=== PATIENT | male | born 1990 | race Caucasian/White ===

== ENCOUNTER 2021-01-07 15:27 | Emergency (ER) | payer SELFPAY ==
[~2021-01-07] VITALS: Ht 190.5 cm; Wt 88.0 kg
[2021-01-07] MEDS ORDERED: IV NORMAL SALINE 1,000ML 1,000 ML IV ONE (16:00)
[2021-01-07] MEDS ORDERED: ONDANSETRON PF 4 MG/2 ML VIAL. IVP ONE (16:00)
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
[2021-01-07 16:22] LABS: BASO % 0 % (0-3); EOS # 0.1 x10^3/uL (0.0-0.7); EOS % 1 % (0-3); HEMATOCRIT 41.4 % (39.0-53.0); HEMOGLOBIN 14.5 g/dL (13.0-17.5); LYMPH # 1.6 x10^3/uL (1.0-4.8); LYMPH % 18 % (24-48); MEAN CORPUSCULAR HEMOGLOBIN 30 pg (25-35); MEAN CORPUSCULAR HGB CONC 35 g/dL (31-37); MEAN CORPUSCULAR VOLUME 85 fL (79-100); MONO # 0.6 x10^3/uL (0.0-1.1); MONO % 7 % (0-9); NEUT # 6.5 x10^3uL (1.8-7.7); NEUT % 74 % (31-73); PLATELET COUNT 221 x10^3/uL (140-400); RED BLOOD COUNT 4.87 x10^6/uL (4.30-5.70); RED CELL DISTRIBUTION WIDTH 13.5 % (11.5-14.5); WHITE BLOOD COUNT 8.8 x10^3/uL (4.0-11.0)
--- NOTE | 2021-01-07 16:26 | EKG ---
[address] [address] Test Date: 2021-01-07 Test Time: 15:40:57 Pat Name: CRISTHIAN REEVES Department: Room: Gender: M Machinery Rigger: RIGOBERTO : 1990 Requested By: DARON JEAN-BAPTISTE Order Number: [id number] Reading MD: Measurements Intervals [place] Rate: 50 P: 38 WI: 152 QRS: 47 QRSD: 90 T: 49 QT: 432 QTc: 396 Interpretive Statements SINUS RHYTHM NORMAL ECG RI6.02 No previous ECG available for comparison
[2021-01-07 16:28] LABS: CALCIUM 8.9 mg/dL (8.5-10.1); CREATININE 1.5 mg/dL (0.7-1.3); GFR 55.7; POTASSIUM 3.7 mmol/L (3.5-5.1)
[2021-01-07 16:33] LABS: ALBUMIN 4.5 g/dL (3.4-5.0); ALBUMIN/GLOBULIN RATIO 1.6 (1.0-1.7); TOTAL PROTEIN 7.4 g/dL (6.4-8.2)
[2021-01-07 16:36] LABS: BACTERIA,URINE FEW /HPF (0-FEW); BILIRUBIN,URINE NEG (NEG); CLARITY,URINE CLEAR; COLOR,URINE AMBER; GLUCOSE,URINE NEG (NEG); NITRITE,URINE NEG (NEG); SQUAMOUS EPITHELIAL CELL,UR FEW /LPF; UROBILINOGEN,URINE 0.2 mg/dL (0.2 mg/dL); WBC,URINE RARE /HPF (0-4)
[2021-01-07 16:48] LABS: BARBITURATES NEG (NEG); BENZODIAZEPINES NEG (NEG); CANNABINOIDS POS (NEG); COCAINE NEG (NEG); METHADONE NEG (NEG); OPIATES NEG (NEG); PHENCYCLIDINE NEG (NEG)
[2021-01-07 16:55] LABS: AMPHETAMINE/METHAMPHETAMINE NEG (NEG)
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
[2021-01-07] MEDS ORDERED: IV NORMAL SALINE 50ML 50 ML ONE (18:23)
[2021-01-07] MEDS ORDERED: cefTRIAXone SODIUM 1 GM VIAL ONE (18:23)
[2021-01-07] MEDS ORDERED: MORPHINE SULFATE 4 MG/ML DISP.SYRIN. IV ONE (18:30)
[2021-01-07 18:36] VITALS: BP 130/54
== END 2021-01-07 18:50 | disposition short-term general hospital (02) ==
LOC: ER 15:27
DX: S02.40EA Zygomatic fracture, right side, initial encounter for closed fracture (principal); S02.40CA Maxillary fracture, right side, initial encounter for closed fracture; S01.111A Laceration without foreign body of right eyelid and periocular area, initial encounter; S40.211A Abrasion of right shoulder, initial encounter; S30.811A Abrasion of abdominal wall, initial encounter; V19.9XXA Pedal cyclist (driver) (passenger) injured in unspecified traffic accident, initial encounter; Y93.I9 Activity, other involving external motion; Y92.89 Other specified places as the place of occurrence of the external cause; Y99.8 Other external cause status
CPT/HCPCS: 36415; 70450; 70486; 72125; 80053; 80307; 81001; 84484; 85025; 93005; 96361; 96374; 96375; 99285; J0696; J2270; J2405; J7030